=== PATIENT | female | born 1990 | race Caucasian/White ===

== ENCOUNTER 2018-08-10 08:22 | Emergency (ER) | payer OTHER ==
[~2018-08-10] VITALS: Ht 152.4 cm; Wt 77.1 kg
[2018-08-10] MEDS ORDERED: PRENATABS RX T1 EACH PO (09:06)
--- OUTSIDE RECORDS SUMMARY | 2018-08-10 10:18 | XMS ---
PreManage Notification: JEANNINE VALLECILLO Security Short Order [place] Events No recent Security Events currently on file CRITERIA MET - [facility] - 2 Visits in 30 Days CARE PROVIDERS SHARAN GARNICA [facility] PHONE: Unknown SHARAN [facility] PHONE: Unknown Andrae has no Care Guidelines for this patient. Isaac VISIT COUNT (12 MO.) 1 [address] [place] [address] [address] TOTAL 4 NOTE: Visits indicate total known visits. ED/UCC VISIT TRACKING (12 MO.) 08/10/2018 08:25 [facility] [place] TYPE: Emergency COMPLAINT: - FLU SYMPTOMS 07/28/2018 20:39 [facility] [place] TYPE: Emergency DIAGNOSES: - Nausea - Nausea - Nausea - not feeling well 05/02/2018 13:20 [facility] [place] TYPE: Emergency COMPLAINT: - SOB, 12 WKS PREG 02/26/2018 09:15 Sharan [facility] [place] TYPE: Emergency DIAGNOSES: - Trichomonal vulvovaginitis - ABDOMINAL PAIN - Other specified related conditions, first trimester - Pelvic and perineal pain INPATIENT VISIT TRACKING (12 MO.) No inpatient visits to display in this time frame [email or web address]
== END 2018-08-10 10:36 | disposition home or self-care (01) ==
LOC: ED 08:22
DX: O21.9 Vomiting of pregnancy, unspecified (principal); Z3A.30 30 weeks gestation of pregnancy; O99.89 Other specified diseases and conditions complicating pregnancy, childbirth and the puerperium; R19.7 Diarrhea, unspecified
CPT/HCPCS: 36415; 80053; 81001; 85025; 99284